=== PATIENT | female | born 1975 | race Caucasian/White ===

== ENCOUNTER 2022-03-09 08:04 | Outpatient (CLI) | payer OTHER, SELFPAY ==
--- NOTE | 2022-03-09 13:07 | W.ANESCHARGE ---
Anesthesia Charges Start Date/Time Anesthesia Start Date: 03/09/22 Anesthesia Start Time: 09:55 Stop Date/Time Anesthesia Stop Date: 03/09/22 Anesthesia Stop Time: 10:18 Summary Emergency: No
--- NOTE | 2022-03-09 15:31 | W.ANESCHARGE ---
Anesthesia Charges Start Date/Time Anesthesia Start Date: 03/09/22 Anesthesia Start Time: 09:55 Stop Date/Time Anesthesia Stop Date: 03/09/22 Anesthesia Stop Time: 10:18 Summary Emergency: No
== END 2022-03-09 08:05 | disposition home or self-care (01) ==
LOC: OP CLINIC 08:05
PROVIDERS: PCP Internal Medicine; Visit Provider Surgery
DX: Z12.11 Encounter for screening for malignant neoplasm of colon (principal); K64.8 Other hemorrhoids; Z83.71 Family history of colonic polyps
CPT/HCPCS: 45378; 812; 813; J2704

== ENCOUNTER 2022-08-29 13:43 | Outpatient (CLI) | payer OTHER, SELFPAY ==
--- NOTE | 2022-08-29 14:00 | CRLHL7_ITS ---
For Patients: As a result of the Century Cures Act, medical imaging exams and procedure reports are released immediately into your electronic medical record. You may view this report before your referring provider. If you have questions, please contact your health care provider. BILATERAL SCREENING MAMMOGRAM WITH COMPUTER-AIDED DETECTION AND TOMOSYNTHESIS TECHNIQUE: CC and MLO views were obtained. These mammographic images have been obtained using full-field digital technique. These mammographic images were interpreted with the benefit of computer-aided detection. Breast Tomosynthesis was used in this interpretation. COMPARISON FILM: 08/16/21, 06/15/20, 03/25/19. FINDINGS: The breasts are heterogeneously dense, which may obscure small masses IMPRESSION: There is no radiographic evidence for malignancy. ASSESSMENT: BI-RADS Category 1: Negative RECOMMENDATION: Routine screening mammogram in 1 year. A lay language report of this examination will be provided to the patient. Carroll Moreno M.D. Diagnostic Radiologist [email or web address] JAMAR/Dictated by: Carroll Moreno MD @ 08/30/2022 9:19:00 AM (Electronically Signed)
== END 2022-08-29 13:44 | disposition home or self-care (01) ==
LOC: MAMMO 13:44
PROVIDERS: PCP Internal Medicine; Visit Provider Obstetrics & Gynecology
DX: Z12.31 Encounter for screening mammogram for malignant neoplasm of breast (principal); R92.2 Inconclusive mammogram
CPT/HCPCS: 77063; 77067

== ENCOUNTER 2023-09-19 10:34 | Outpatient (CLI) | payer MEDICAID, SELFPAY ==
--- OUTSIDE RECORDS SUMMARY | 2023-09-19 10:37 | XMS_ITS | Clinical Summary ---
Author Name Unknown Organization [facility] Address [place], [place] [address] Care Team Providers Care Rendering Equipment Tender Name Role Phone Brown Bright MD Primary Care Provider [phone] Allergies No known active allergies Medications Medication Sig Dispensed Refills Start Date End Date Status metoprolol succinate (TOPROL XL) 25 mg Sustained-Release tabletIndications:Tachy cardia Take 1 Tablet (25 mg) by mouth two times daily. 180 Tablet 3 08/10/2023 Active rosuvastatin (CRESTOR) 10 mg tabletIndications:Hyper lipidemia, unspecified hyperlipidemia type Take 1 Tablet (10 mg) by mouth once daily. 90 Tablet 3 08/10/2023 Active Active Problems Problem Noted Date Diagnosed Date Depression 04/07/2014 Overview: Well-controlled Hyperlipidemia 04/07/2014 Encounters Date Type Department Care Team Description 09/11/2023 9:20 AM EPOXY SPECIALIST Orders Only [facility] [address] [place] [address] Lab, [place] [facility] 09/11/2023 Travel 08/10/2023 9:30 AM EPOXY SPECIALIST Office Visit [facility] [address] [place] [address] Sukhwinder Alvarez MD Follow Up (F/U for Tachycardia) 08/10/2023 Travel from Last 3 Months Family History Medical History Relation Name Comments Other Other All in good a lt. No Ca, HD, or DM Relation Name Status Comments Other Social History Tobacco Use Types Packs/Day Years Used Date Smoking Tobacco: Never Smokeless Tobacco: Never Tobacco Cessation:Counseling Given: Yes Alcohol Use Standard Drinks/Week Comments Yes 0 (1 standard drink = 0.6 oz pur e alcohol) 2 glasses of wine a week Social Connections Answer Date Recorded Frequency of Communication with Friends and Fami ly Not on file 09/10/2021 Financial Resource Strain Answer Date R ecorded Difficulty of Paying Living Expenses Not on file 09/10/2021 Difficulty of Paying Living Expenses Not on file 09/10/2021 Sex and Gender Information Value Date Recorded Sex Assigned at Not on file Gender Identity Not on file Sexual Orientation Not on file Obstetrics History Last Filed Vital Signs Vital Sign Reading Time Taken Comments Blood Pressure 108/62 08/10/2023 9:19 AM EPOXY SPECIALIST Pulse 78 08/10/2023 9:19 AM EPOXY SPECIALIST Temperature 36.6 ??C (97.8 ??F) 08/12/2014 7:58 AM CS T Respiratory Rate 16 01/28/2021 9:22 AM CDT Oxygen Saturation 99% 08/10/2023 9:19 AM EPOXY SPECIALIST Inhaled Oxygen Concentration - - Weight 69.4 kg (153 lb) 08/10/2023 9:19 AM EPOXY SPECIALIST Height 162.2 cm (5' 3.86) 08/10/2023 9:19 AM CS T Body Mass Index 26.38 08/10/2023 9:19 AM EPOXY SPECIALIST Plan of Treatment Health Maintenance Due Date Last Done Comments Tdap 1984 Depression screening for age 12+ 1985 HIV for age 15-65 1988 Hepatitis C screening for age 18-79 11/23/1991 Tetanus booster 1993 Colonoscopy through age 75 2018 Mammogram for age 45-75 2018 Pap test for age 21-65 11/18/2022 , 11/19/2019, 05/22/2016, Additional history exists COVID-19 vaccine series ( season) 2023 01/14/2022, 07/15/2021, 12/07/2020 Influenza for age 9-49 05/11/2023 BMI (ht and wt on same day) for age 18+ 08/10/2024 08/10/2023, 03/08/2022 Lipids for age 45-75 09/11/2028 09/11/2023, 07/24/2022, 03/21/2022, Additional history exists Pneumococcal series for age 6-64 Aged Out No longer eligible based on patient's age to complete this topic Procedures Procedure Name Priority Date/Time Associated Diagnosis Comments LIPID PANEL Routine 09/11/2023 9:11 AM EPOXY SPECIALIST Hyperlipidemia, unspecified hyperlipidemia type LIPOPROTEIN A Routine 09/11/2023 9:11 AM EPOXY SPECIALIST Hyperlipidemia, unspecified hyperlipidemia type AST (SGOT) Routine 09/11/2023 9:11 AM EPOXY SPECIALIST Hyperlipidemia, unspecified hyperlipidemia type ALT (SGPT) Routine 09/11/2023 9:11 AM EPOXY SPECIALIST Hyperlipidemia, unspecified hyperlipidemia type from Last 3 Months Results * LIPOPROTEIN A (09/11/2023 9:11 AM EPOXY SPECIALIST) LIPOPROTEIN (A) 34.3 <75.0 nmol/L 09/12/2023 6:07 PM EPOXY SPECIALIST [facility] Comment: Note: ??Values greater than or equal to 75.0 nmol/L may ? indicate an independent risk factor for CHD, ? but must be evaluated with caution when applied ? to non- populations due to the ? influence of genetic factors on Lp(a) across ? ethnicities. Blood BLOOD SPECIMEN / Unknown Venipuncture / Unknown 09/11/2023 9:11 AM EPOXY SPECIALIST 09/11/2023 9:11 AM EPOXY SPECIALIST Narrative [facility] - 09/12/2023 6:07 PM EPOXY SPECIALIST Performed at: ??[address] ??[id number] Dosier Operator: Jacklyn Grande MD, Phone: ??[phone] Sukhwinder Alvarez MD SEND OUTS [facility] ([facility]) [address] [place] [address], * ALT (SGPT) (09/11/2023 9:11 AM EPOXY SPECIALIST) ALT (SGPT) 29 10 - 35 IU/L 09/11/2023 4:39 PM EPOXY SPECIALIST [facility] Blood BLOOD SPECIMEN / Unknown Venipuncture / Unknown 09/11/2023 9:11 AM EPOXY SPECIALIST 09/11/2023 9:11 AM EPOXY SPECIALIST Sukhwinder Alvarez MD CHEMISTRY Performing Organization Address City/[facility]/ZIP Co de Phone Number [facility] [address] [place] [address], * AST (SGOT) (09/11/2023 9:11 AM EPOXY SPECIALIST) AST (SGOT) 26 10 - 35 IU/L 09/11/2023 4:39 PM EPOXY SPECIALIST [facility] Blood BLOOD SPECIMEN / Unknown Venipuncture / Unknown 09/11/2023 9:11 AM EPOXY SPECIALIST 09/11/2023 9:11 AM EPOXY SPECIALIST Sukhwinder Alvarez MD CHEMISTRY Performing Organization Address City/[facility]/ZIP Co de Phone Number [facility] [address] [place] [address], * LIPID PANEL (09/11/2023 9:11 AM EPOXY SPECIALIST) CHOLESTEROL,TOTAL 159 100 - 199 mg/dL 09/11/2023 4:39 PM EPOXY SPECIALIST [facility] Comment: Cholesterol, Total Reference Ranges Desirable <200 mg/dL Borderline 200-239 mg/dL High >=240 mg/dL TRIGLYCERIDES 115 <150 mg/dL 09/11/2023 4:39 PM EPOXY SPECIALIST [facility] HDL CHOLESTEROL 46 >40 mg/dL 4:39 PM EPOXY SPECIALIST [facility] NON-HDL CHOLESTEROL 113 <145 mg/dl 09/11/2023 4:39 PM EPOXY SPECIALIST [facility] CHOL/HDL RATIO 3.46 <4.50 09/11/2023 4:39 PM EPOXY SPECIALIST [facility] LDL CHOLESTEROL 90 <=130 mg/dL 09/11/2023 4:39 PM EPOXY SPECIALIST [facility] VLDL CHOLESTEROL 23 <=30 mg/dL 09/11/2023 4:39 PM EPOXY SPECIALIST [facility] PROVIDER ORDERED STATUS RANDOM 09/11/2023 4:39 PM EPOXY SPECIALIST [facility] Blood BLOOD SPECIMEN / Unknown Venipuncture / Unknown 09/11/2023 9:11 AM EPOXY SPECIALIST 09/11/2023 9:11 AM EPOXY SPECIALIST Sukhwinder Alvarez MD CHEMISTRY [facility] [address] [place] [address], from Last 3 Months Care Teams Rendering Equipment Tender Relationship Specialty Start Date End Date Brown Bright MD [address] [place] [address] PCP - General Family Practice 04/27/17
--- OUTSIDE RECORDS SUMMARY | 2023-09-19 10:37 | XMS_ITS | Clinical Summary ---
Author Name Unknown Organization [facility] Address [address], [place] [address] Care Team Providers Care Hospitality Director Name Role Phone Unavailable Primary Care Provider Unavailabl e Source Comments You are receiving this document as you are listed as the primary care provider,follow-up provider, or the patient has been referred to you for consultation.This is in compliance with the Medicare andMedicaid EHR Incentive Program,which states Providers who transition their patient to another setting of careor provider of care or refers their patient to another provider of care shouldprovide summary care record for each transition of care or referral. [facility] Allergies No known active allergies Medications Medication Sig Dispensed Refills Start Date End Date Status amitriptyline (ELAVIL) 50 MG tablet Take 50 mg by mouth every evening. 0 Active zolpidem (AMBIEN) 5 MG tablet TAKE 1 TABLET BY MOUTH DAILY AT BEDTIME NEEDED. 0 06/10/2020 Active amitriptyline (ELAVIL) 25 MG tablet Take 50 mg by mouth daily at bedtime. 0 07/15/2020 Active Active Problems Problem Noted Date Diagnosed Date Depression 04/07/2014 Overview: Well-controlled Social History Tobacco Use Types Packs/Day Years Used Date Smoking Tobacco: Never Alcohol Use Standard Drinks/Week Comments Yes 0 (1 standard drink = 0.6 oz pur e alcohol) AUDIT-C Answer Date Recorded Q1: How often do you have a drink containing alc ohol? 2-4 times a month 08/03/2020 Average Number of Drinks Not on file 020 Frequency of Binge Drinking Not on file 07/12 Sex and Gender Information Value Date Recorded Sex Assigned at Not on file Gender Identity Not on file Sexual Orientation Not on file Last Filed Vital Signs Vital Sign Reading Time Taken Comments Blood Pressure 116/74 08/03/2020 8:22 AM TRACK CAR OPERATOR Pulse 120 08/03/2020 8:22 AM TRACK CAR OPERATOR Temperature - - Respiratory Rate - - Oxygen Saturation - - Inhaled Oxygen Concentration - - Weight 60.3 kg (133 lb) 08/03/2020 8:22 AM TRACK CAR OPERATOR Height - - Body Mass Index - - Plan of Treatment Health Maintenance Due Date Last Done Comments Cervical Cancer Screening Due 1973 Colon Cancer Screening Plan Due 1973 Hep C Screening (Preventive Services) 1973 HepB (1) 1973 COVID-19 Vaccine (#1) 05/25/1974 HIV Screening (Preventive Services) 1989 Adult Preventive Visit 11/23/1991 Cholesterol 2018 Influenza (#1) 2023 06/11/2019, 04/11, 07/26/2017, Additional history exists Zoster/Shingles (1 of 2) 11/23/2023 DTaP/Tdap/Td (2 - Tdap) 02/13/2026 02/14/2016 HepA Aged Out No longer eligi ble based on patient's age to complete this topic Hib Aged Out No longer eligi ble based on patient's age to complete this topic IPV (Polio) Aged Out No longer eligi ble based on patient's age to complete this topic MCV4 Aged Out No longer eligi ble based on patient's age to complete this topic Pneumococcal Aged Out No longer eligi ble based on patient's age to complete this topic
--- NOTE | 2023-09-19 10:45 | CRLHL7_ITS ---
For Patients: As a result of the Cures Act, medical imaging exams and procedure reports are released immediately into your electronic medical record. You may view this report before your referring provider. If you have questions, please contact your health care provider. BILATERAL SCREENING MAMMOGRAM WITH COMPUTER-AIDED DETECTION AND TOMOSYNTHESIS TECHNIQUE: CC and MLO views were obtained. These mammographic images have been obtained using full-field digital technique. These mammographic images were interpreted with the benefit of computer-aided detection. Breast Tomosynthesis was used in this interpretation. COMPARISON FILM: 08/29/22, 08/16/21, 06/15/20. FINDINGS: The breasts are extremely dense, which lowers the sensitivity of mammography IMPRESSION: There is no radiographic evidence for malignancy. ASSESSMENT: BI-RADS Category 1: Negative RECOMMENDATION: Routine screening mammogram in 1 year. A lay language report of this examination will be provided to the patient. TULIO FOLEY M.D. Diagnostic/Nuclear Medicine Radiologist [email or web address] JANETTE:park Transcribed: 3:20 p.mCara nick/Dictated by: Tulio Foley MD @ 09/20/2023 8:27:00 AM (Electronically Signed)
== END 2023-09-19 10:35 | disposition home or self-care (01) ==
LOC: MAMMO 10:36
PROVIDERS: PCP Internal Medicine; Visit Provider Internal Medicine
DX: Z12.31 Encounter for screening mammogram for malignant neoplasm of breast (principal); R92.2 Inconclusive mammogram
CPT/HCPCS: 77063; 77067

== ENCOUNTER 2024-09-04 00:53 | Emergency (ER) | payer MEDICAID, SELFPAY ==
--- OUTSIDE RECORDS SUMMARY | 2024-09-04 00:55 | XMS_ITS ---
Author Organization [employer] Address [address] [facility] [address] [place] [address] Care Team Providers Care Section Leader Name Role Phone Migration, Provider Unavailable Unavailable REASON FOR VISIT EMR-Dami Encounters Encounter Location Date Provider Diagnosis [facility] [address] [facility] [address] [place], [place] [id number] 06/07/2024 Provider Migration Plan Of Treatment No Information Progress Notes * Shekhar TURNEROB: 4 (48 yo F)Acc No.[id number]:06/07/2024 Patient: Lottie Alesia MCGINNIS :1975 A ge:48 Y S ex:Female Address:[address] [place] [address], [id number] Subjective: * Chief Complaints: * E MR-Dami * Medical History: * Surgical History: * Hospitalization/Major Diagno stic Procedure: * Medications: Objective: * Vitals: * Physical Examination: Assessment: Plan: * Treatment: * Procedure Codes: * * Date:
--- OUTSIDE RECORDS SUMMARY | 2024-09-04 00:55 | XMS_ITS ---
Author Organization [employer] Address [address] [facility] [address] [place] [address] Care Team Providers Care Senior Javascript Engineer Name Role Phone Migration, Provider Unavailable Unavailable REASON FOR VISIT EMR-Dami Encounters Encounter Location Date Provider Diagnosis [facility] [address] [facility] [address] [place], [place] [id number] 06/08/2024 Provider Migration Plan Of Treatment No Information Progress Notes * Shekhar TURNEROB: 4 (48 yo F)Acc No.[id number]:06/08/2024 Patient: Lottie Alesia MCGINNIS :1975 A ge:48 Y S ex:Female Address:[address] [place] [address], [address] Subjective: * Chief Complaints: * E MR-Dami * Medical History: * Surgical History: * Hospitalization/Major Diagno stic Procedure: * Medications: Objective: * Vitals: * Physical Examination: Assessment: Plan: * Treatment: * Procedure Codes: * * Date:
--- OUTSIDE RECORDS SUMMARY | 2024-09-04 00:56 | XMS_ITS | Patient Health Record ---
Author Organization [employer] Address [address] [facility] [address] [place] [address] Care Team Providers Care Disaster Director Name Role Phone Migration, Provider Unavailable Unavailable Reason For Referral No Information Encounters Encounter Location Date Provider Diagnosis [facility] [address] [facility] [address] [place], [place] [id number] 06/07/2024 Provider Migration Makeda Narayanan [facility] [address] [facility] [address] [place], [place] [id number] 06/08/2024 Provider Migration Plan Of Treatment No Information
[2024-09-04 00:59] VITALS: BP 114/73; PULSE 89; RESP 18; TEMP 37.3; O2SAT 100; BMI 24.0
--- NOTE | 2024-09-04 01:20 | ED.GENADULT ---
HPI - General Adult General Chief complaint: Nausea/Vomiting Stated complaint: Vomiting, diarrhea, dizzy Time Seen by Provider: 09/04/24 01:00 Source: patient Mode of arrival: ambulatory Limitations: no limitations History of Present Illness HPI narrative: 48-year-old female presents the emergency department with for evaluation of nausea vomiting and diarrhea. Started 3 hours ago. Son with recent similar symptoms. No trauma or injury. No bloody stools or hematemesis. No fever. Had been feeling well up until 3 hours ago, sudden onset. No prior history of bowel obstruction or pancreatitis. Did not try any measures at home to help with symptoms. Does have a prior history of appendectomy many years ago, no other abdominal surgeries. No significant abdominal pain. Past medical history notable for anxiety and sinus tachycardia. Home meds are Lexapro and metoprolol. Denies allergies. Nonsmoker. ROS notable for the GI symptoms only, feels mildly weak and dizzy, otherwise benign times 12 systems. Related Data Home Medications ?Medication ?Instructions ?Recorded ?Confirmed rosuvastatin 10 mg tablet (Crestor) 10 mg PO QDAY 12/06/22 09/04/24 Previous Rx's ?Medication ?Instructions ?Recorded amitriptyline 100 mg tablet 100 mg PO QHS #90 tabs 12/20/22 metoprolol succinate 50 mg 25 mg (1/2 x 50 mg) PO BID #180 02/21/24 tablet,extended release 24 hr tabs Allergies Allergy/AdvReac Type Severity Reaction Status Date / Time No Known Allergies Allergy Verified 09/04/24 01:01 [facility] Surgical History History of appendectomy ?Z90.49 - Acquired absence of other specified parts of digestive tract (ICD-10) Family History Other Colonic polyp Social History Smoking Status: Never smoker Second hand tobacco smoke exposure: No How often do you have a drink containing alcohol: never AUDIT-C Alcohol total score: 0 Non-prescribed substance use: denies use Exam Const: Vital Signs, click to edit/add: Vital Signs - 24 hr 12/26/24 00:59 Temperature 99.2 F Pulse Rate [Right Pulse Oximeter] 89 Respiratory Rate 18 Blood Pressure [Ri ght Upper Arm] 114/73 Pulse Oximetry 100 Oxygen Delivery Me thod Room Air Documenting provider has reviewed patient's vital signs: yes Common normals: alert General appearance: well kempt Other: Retching, answers questions appropriately. HENMT: Common normals: normocephalic, moist oral mucous membranes and dentition normal Head and scalp: normocephalic Mouth: oral and palatal mucosa normal Throat: posterior oropharynx normal Eye: Common normals: conjunctivae normal General eye: normal appearance of both eyes Conjunctiva: conjunctiva(e) normal Neck & C-Spine: Common normals: no lymphadenopathy and no meningeal signs General: normal visual inspection Resp: Common normals: normal respiratory effort, no use of accessory muscles and clear to auscultation bilaterally Effort & inspection: able to speak in complete sentences Auscultation: clear to auscultation bilaterally Cardio: Common normals: regular rate, regular rhythm, S1 normal heart sound, S2 normal heart sound and no murmurs Rate: regular rate Rhythm: regular rhythm Heart sounds: S1 normal and S2 normal GI: Common normals: Normal to inspection, nondistended, normoactive bowel sounds present, soft to palpation, non-tender, no hepatosplenomegaly and no masses Palpation: soft and no hepatosplenomegaly Extremity: Common normals: normal to inspection and no pedal edema Neuro: Sensorium/orientation: alert Meningeal signs: no meningeal signs Speech: speech normal Motor exam: no movement abnormalities noted Psych: Appearance: well kempt Attitude: engaged Insight: insight good Judgement: judgment good Skin: Common normals: no rashes or lesions noted General skin exam: no rashes or lesions noted Course Course ED Course: [age] old female with nausea vomiting and diarrhea, suspicious for gastroenteritis. Similar symptoms and household contact and we are seeing many people with similar illness in the community right now. I do think patient's symptoms are amplified because the use of metoprolol. I am sure this is exacerbating the dizziness associated with her symptoms. Would recommend insertion of IV, 1 L of normal saline. 4 mg of IV Zofran. 3 minutes later will give 4 mg of oral Imodium. Then fluid challenge and re-evaluate. Differential diagnosis also includes obstruction, pancreatitis, colitis, volvulus, cholecystitis, amongst others. Gastroenteritis most likely based on history and lack of peritonitis on exam. Counseled on risks and benefits of doing any blood work, she is in agreement to try symptomatic treatment 1st and see how things go. Will re-evaluated about 90 minutes. Vital Signs Vital signs: Initial Vital Signs Temperature 99.2 F 09/04/24 00:59 Temperature Source Temporal Artery Scan 09/04/24 00:59 Pulse Rate 89 09/04/24 00:59 Respiratory Rate 18 09/04/24 00:59 Blood Pressure 114/73 09/04/24 00:59 Blood Pressure Mean 86 09/04/24 00:59 Blood Pressure Position Supine 09/04/24 00:59 Pulse Oximetry 100 09/04/24 00:59 Oxygen Delivery Method Room Air 09/04/24 00:59 Vital Signs Temperature 99.2 F 09/04/24 00:59 Pulse Rate 89 09/04/24 00:59 Respiratory Rate 18 09/04/24 00:59 Blood Pressure 114/73 09/04/24 00:59 Pulse Oximetry 100 09/04/24 00:59 Oxygen Delivery Method Room Air 09/04/24 00:59 Temperature 99.2 F 09/04/24 00:59 Pulse Rate 89 09/04/24 00:59 Respiratory Rate 18 09/04/24 00:59 Blood Pressure 114/73 09/04/24 00:59 Pulse Oximetry 100 09/04/24 00:59 Oxygen Delivery Method Room Air 09/04/24 00:59 Medications Administered Medications: Discontinued Medications Generic Name Dose Route Start Last Admin Trade Name Freq PRN Reason Stop Dose Admin Sodium Chloride 1,000 mls @ 1,000 mls/hr 09/04/24 01:19 09/04/24 01:58 0.9 % Sodium Chloride 1000 Ml IV 09/04/24 02:18 Infused .Q1H CRISTINA Infusion Loperamide HCl 4 mg 09/04/24 01:19 09/04/24 01:53 Loperamide Hcl 2 Mg Capsule PO 09/04/24 01:20 4 mg ONCE ONE Administration Ondansetron HCl 4 mg 09/04/24 01:20 09/04/24 01:24 Ondansetron 2 Mg/Ml Inj IVP 09/04/24 01:21 4 mg ONCE ONE Administration Discharge Plan Discharge Clinical Impression: Gastroenteritis Patient Disposition: Home w/ Parent or Adult Condition: Improved Instructions: Gastroenteritis (DC) Additional Instructions: As we discussed, your symptoms seem consistent with gastroenteritis, also known as the stomach flu. These could common very severely and suddenly. I am glad that we have gone the vomiting and diarrhea to cease, I would expect the nausea to persist. Symptoms tend to last 3-5 days. I have given you prescription for more Zofran, the anti nausea medication. Take another dose at 5:30 a.m. this morning and then wait and take it about every 6 hours as needed. Your given a single dose of Imodium, and [id number] anti diarrhea medication. Often, a single dose is plenty. But if not, you may continue taking 2 mg every 2 hours as needed if you continue to have diarrhea bursts. Drink lots of fluids, slowly advance her diet starting with soft, bland salty foods. Try to isolate your bathroom use to only 1 and have the rest of the family use the other if possible. Avoid close contact if possible as well as food preparation for others. If you have high fevers, persistent vomiting for more than 24 hours, severe abdominal pain or other alarming symptoms, please return to the emergency department. I would skip the metoprolol today. Prescriptions: No Action rosuvastatin [Crestor] 10 mg tablet 10 mg PO QDAY amitriptyline 100 mg tablet 100 mg PO QHS Qty: 90 1RF metoprolol succinate 50 mg tablet extended release 24 hr 25 mg PO BID Qty: 180 1RF Follow Up/Referrals: Ana Gonzalez MD [Primary Care Provider] - Stand Alone Forms: [employer] Info Instructions
[2024-09-04] MEDS: ONDANSETRON 2 MG/ML inj 4 MG IVP (01:24)
[2024-09-04] MEDS: 0.9 % SODIUM CHLORIDE 1000 ml 1,000 ML IV (01:25)
[2024-09-04 01:30] VITALS: O2SAT 100
[2024-09-04] MEDS: LOPERAMIDE HCL 2 MG CAPSULE 4 MG PO (01:53)
[2024-09-04 02:40] VITALS: BP 108/74; PULSE 81; RESP 18; TEMP 37.3; O2SAT 100
== END 2024-09-04 03:02 | disposition home or self-care (01) ==
PROVIDERS: Emergency Provider Family Medicine; PCP Internal Medicine
DX: K52.9 Noninfective gastroenteritis and colitis, unspecified (principal)
CPT/HCPCS: 94761; 96374; 99283; 99284; A9270; J2405; J7030

== ENCOUNTER 2024-11-11 13:38 | Outpatient (CLI) | payer MEDICAID, SELFPAY ==
--- NOTE | 2024-11-11 14:00 | CRLHL7_ITS ---
For Patients: As a result of the Century Cures Act, medical imaging exams and procedure reports are released immediately into your electronic medical record. You may view this report before your referring provider. If you have questions, please contact your health care provider. BILATERAL SCREENING MAMMOGRAM WITH COMPUTER-AIDED DETECTION AND TOMOSYNTHESIS TECHNIQUE: CC and MLO views were obtained. These mammographic images have been obtained using full-field digital technique. These mammographic images were interpreted with the benefit of computer-aided detection. Breast Tomosynthesis was used in this interpretation. BILATERAL XCCL 2D. COMPARISON FILM: 09/19/23, 08/29/22, 08/16/21. FINDINGS: The breasts are extremely dense, which lowers the sensitivity of mammography. IMPRESSION: There is no radiographic evidence for malignancy. ASSESSMENT: BI-RADS Category 1: Negative RECOMMENDATION: Routine screening mammogram in 1 year. A lay language report of this examination will be provided to the patient. Carroll Moreno M.D. Diagnostic Radiologist [email or web address] SP/Dictated by: Carroll Moreno MD @ 11/12/2024 9:17:00 AM (Electronically Signed)
== END 2024-11-11 13:39 | disposition home or self-care (01) ==
LOC: MAMMO 13:38
PROVIDERS: PCP Internal Medicine; Visit Provider Internal Medicine
DX: Z12.31 Encounter for screening mammogram for malignant neoplasm of breast (principal); R92.343 Mammographic extreme density, bilateral breasts
CPT/HCPCS: 77063; 77067; 80061; 82947

== ENCOUNTER 2024-11-11 13:45 | Outpatient (CLI) | payer MEDICAID, SELFPAY | END 2024-11-11 13:46 | disposition home or self-care (01) | LOC: NFLDREF 23:46 | PROVIDERS: PCP Internal Medicine; Referring Provider Internal Medicine; Visit Provider Internal Medicine | DX: Z13.1 Encounter for screening for diabetes mellitus (principal); Z13.6 Encounter for screening for cardiovascular disorders | CPT/HCPCS: 80061; 82947 ==

== ENCOUNTER 2024-11-18 11:55 | Outpatient (CLI) | payer MEDICAID, SELFPAY ==
[2024-11-21 00:05] LABS: HPV Source Cervix; HPV, High Risk by TMA Not Detected
== END 2024-11-18 11:56 | disposition home or self-care (01) ==
PROVIDERS: PCP Internal Medicine; Visit Provider Obstetrics & Gynecology
DX: Z12.4 Encounter for screening for malignant neoplasm of cervix (principal)
CPT/HCPCS: 87624; 87625; 88141; 88142

== ENCOUNTER 2025-06-25 13:32 | Outpatient (CLI) | payer MEDICAID, SELFPAY ==
--- NOTE | 2025-06-25 13:45 | CRLHL7_ITS ---
For Patients: As a result of the Century Cures Act, medical imaging exams and procedure reports are released immediately into your electronic medical record. You may view this report before your referring provider. If you have questions, please contact your health care provider. EXAM: MRI OF THE RIGHT FOOT, WITHOUT CONTRAST CLINICAL INDICATION: Right foot pain. Metatarsalgia. COMPARISON PLAIN FILMS: None. COMPARISON CROSS-SECTIONAL IMAGING STUDIES: 09/01/2016 MR toes with 3rd MTP joint arthrogram. TECHNICAL: Axial, sagittal and coronal T1, PD and STIR images. FINDINGS: JOINT SPACES: Interval postoperative changes in the 3rd MTP joint. The remaining joint spaces are intact. No chondromalacia or subchondral changes. No joint effusion or synovitis. SOFT TISSUES: 0.9 cm focal hourglass shaped area of soft tissue thickening with intermediate T1 signal and intermediate to decreased T2 signal at the 3rd interspace. Findings consistent with a small neuroma. No evidence for intermetatarsal bursitis. OSSEOUS STRUCTURES: No fracture, bone marrow contusion, stress change or marrow replacement process. LIGAMENTS: The Lisfranc ligament is intact. TMT joint alignment is maintained. The collateral ligaments of the MTP joints are intact. TENDONS AND MUSCLES: The flexor and extensor tendons are intact. The distal peroneus longus and brevis tendons are intact. No muscle atrophy or edema. IMPRESSION: 1. Small neuroma at the 3rd interspace. 2. Interval postoperative changes in the 3rd MTP joint. Dictated by Ortiz Saavedra MD @ 06/25/2025 9:12:11 PM (Electronically Signed)
== END 2025-06-25 13:33 | disposition home or self-care (01) ==
LOC: MRI 13:33
PROVIDERS: PCP Internal Medicine; Visit Provider Podiatrist
DX: M79.671 Pain in right foot (principal)
CPT/HCPCS: 73718